=== PATIENT | male | born 1995 | race Caucasian/White ===

== ENCOUNTER 2017-02-18 10:45 | Emergency (ER) | payer OTHER ==
[~2017-02-18] VITALS: Ht 188 cm; Wt 90.7 kg
--- NOTE | 2017-02-18 10:55 | NUR ---
dr boudreaux at the bedside for eval and exam.
[2017-02-18] MEDS ORDERED: ONDANSETRON ODT 4 MG TAB.RAPDIS SL ONE (11:00)
[2017-02-18] MEDS ORDERED: ONDANSETRON ODT 4 MG TAB.RAPDIS ONE (11:04)
[2017-02-18 11:09] LABS: BASOPHILS # (AUTO) 0.1 K/uL (0.0-0.2); BASOPHILS % (AUTO) 0.9 % (0.0-2.0); EOSINOPHILS # (AUTO) 0.1 K/uL (0.0-0.7); EOSINOPHILS % (AUTO) 0.8 % (0.0-7.0); HEMATOCRIT 46.2 % (40.0-50.0); HEMOGLOBIN 15.7 g/dL (14.0-18.0); LYMPHOCYTES # (AUTO) 1.3 K/uL (0.8-4.8); LYMPHOCYTES % (AUTO) 9.2 % (20.5-51.5); MEAN CORPUSCULAR HEMOGLOBIN 29.7 uug (27.0-31.0); MEAN CORPUSCULAR HGB CONC 34 g/dL (32.0-37.0); MEAN CORPUSCULAR VOLUME 87.7 fL (82.0-92.0); MONOCYTES # (AUTO) 0.9 K/uL (0.1-1.30); MONOCYTES % (AUTO) 5.9 % (0.0-11.0); NEUTROPHILS # (AUTO) 12.1 K/uL (1.8-8.9); NEUTROPHILS % (AUTO) 83.2 % (38.5-71.5); PLATELET COUNT (AUTO) 205 K/uL (150-450); RED BLOOD CELL COUNT(AUTO) 5.27 MIL/uL (4.70-6.10); RED CELL DISTRIBUTION WIDTH 12.2 % (11.5-14.5); WHITE BLOOD COUNT (AUTO) 14.4 K/uL (4.0-11.2)
[2017-02-18 11:16] LABS: CALCIUM 9.4 mg/dL (8.5-10.1); CREATININE 1.3 mg/dL (0.6-1.3); POTASSIUM 3.8 mmol/L (3.5-5.1)
[2017-02-18 11:23] LABS: ALBUMIN 4.5 g/dL (3.4-5.0); BILIRUBIN,DIRECT 0.2 mg/dL (0.0-0.2); BILIRUBIN,TOTAL 0.7 mg/dL (0.2-1.0); TOTAL PROTEIN, SERUM 8.2 g/dL (6.4-8.2)
[2017-02-18] MEDS ORDERED: IV NORMAL SALINE 1000 ML BAG IV ONE (11:30)
[2017-02-18] MEDS ORDERED: KETOROLAC TROMETHAMINE 15 MG INJ IV ONE (11:30)
[2017-02-18] MEDS ORDERED: KETOROLAC TROMETHAMINE 30 MG INJ ONE (11:43)
[2017-02-18 11:58] LABS: BAND % (MANUAL) 2 % (0-10); EOSINOPHILS % (MANUAL) 1 % (0-8); LYMPHOCYTES % (MANUAL) 9 % (20-40); MONOCYTES % (MANUAL) 2 % (2-10); NEUTROPHILS % (MANUAL) 86 % (42-75); PLATELET ESTIMATE ADEQUATE
--- NOTE | 2017-02-18 12:23 | NUR ---
Patient is resting comfortably in bed with eyes closed, nad noted.
--- NOTE | 2017-02-18 13:32 | NUR ---
Pt dc;ed home w/ aci.
[2017-02-18 13:33] VITALS: BP 114/74
== END 2017-02-18 13:34 | disposition home or self-care (01) ==
LOC: ER 10:45
DX: R10.33 Periumbilical pain (principal); R11.2 Nausea with vomiting, unspecified; F10.20 Alcohol dependence, uncomplicated; F19.10 Other psychoactive substance abuse, uncomplicated; Z88.1 Allergy status to other antibiotic agents
CPT/HCPCS: 36415; 83690; 85025; A4663; J1885; J7030; Q0162